=== PATIENT | male | born 1945 | race Caucasian/White ===

== ENCOUNTER 2017-05-26 21:38 | Inpatient (IN) | payer MEDICARE, BC ==
[2017-05-26 22:16] LABS: BASOPHILS 0 % (0-2); EOSINOPHILS 0.3 % (0-7); HEMATOCRIT 45.5 % (42.0-54.0); HEMOGLOBIN 15.3 g/dL (13.5-17.5); IMMATURE GRANULOCYTES 0.3 % (0-5); LYMPHOCYTES 1.3 % (15-50); MCH 31.5 pg (26.0-34.0); MCHC 33.6 g/dL (31.0-37.0); MCV 93.6 fL (80.0-100.0); MEAN PLATELET VOLUME 11.2 fL (7.4-10.4); MONOCYTES 2.9 % (2-11); NEUTROPHILS 95.2 % (40-80); PLATELET COUNT 133 10x3/uL (130-400); RBC 4.86 10x6/uL (4.20-6.10); RDW 13.5 % (11.5-14.5); WBC 12.6 10x3/uL (4.8-10.8)
[2017-05-26 22:34] LABS: ALBUMIN 3.6 g/dL (3.4-5.0); ANION GAP 16.1 mmol/L (8-16); BILIRUBIN - TOTAL 1.03 mg/dL (0.2-1.3); CALCIUM 9.5 mg/dL (8.5-10.1); CARBON DIOXIDE 24.6 mmol/L (21.0-32.0); CREATININE - SERUM 1.7 mg/dL (0.6-1.3); POTASSIUM - SERUM 3.7 mmol/L (3.5-5.1); PROTEIN - SERUM 6.9 g/dL (6.4-8.2)
[2017-05-26 22:35] LABS: MAGNESIUM - SERUM 1.6 mg/dL (1.8-2.4)
[2017-05-26 23:35] LABS: APPEARANCE CLEAR (CLEAR); BILIRUBIN NEGATIVE (NEGATIVE); COLOR DK YELLOW (YELLOW); GLUCOSE NEGATIVE (NEGATIVE); KETONE NEGATIVE (NEGATIVE); NITRITE NEGATIVE (NEGATIVE); PROTEIN 2+ mg/dL (NEGATIVE); SPECIFIC GRAVITY 1.015 (1.005-1.020); UROBILINOGEN NORMAL (NORMAL)
[2017-05-26 23:37] LABS: BACTERIA FEW /hpf (NONE SEEN); EPITHELIAL CELLS 0-5 /hpf (0-5); RED CELLS - URINE NONE SEEN /hpf (0-5); WHITE CELLS - URINE 0-5 /hpf (0-5)
--- NOTE | 2017-05-27 00:16 | NUR ---
PATTERNMAKER HELPER AT BEDSIDE, CALL LIGHT IN REACH. WILL CONTINUE WITH PLAN OF CARE.
--- NOTE | 2017-05-27 02:48 | NUR ---
PATIENT ARRIVED TO ROOM VIA WHEELCHAIR FROM THE ER. ALERT AND ORIENTED TO ROOM AND CALL LIGHT. CALL LIGHT IN REACH. DENIES PAIN OR NEEDS AT THIS TIME. WILL CONTINUE TO MONTIOR.
[2017-05-27] MEDS ORDERED: ZYLOPRIM100 MG PO (03:26)
[2017-05-27] MEDS ORDERED: PACERONE400 MG PO (03:26)
[2017-05-27] MEDS ORDERED: NORVASC10 MG PO (03:26)
[2017-05-27] MEDS ORDERED: ELIQUIS5 MG PO (03:27)
[2017-05-27] MEDS ORDERED: FOLIC ACID0.8 MG PO (03:27)
[2017-05-27] MEDS ORDERED: COZAAR50 MG PO (03:27)
[2017-05-27] MEDS ORDERED: PRILOSEC10 M1 PO (03:28)
[2017-05-27] MEDS ORDERED: TOPROL XL50 MG PO (03:28)
[2017-05-27] MEDS ORDERED: PREDNISONE1 MG PO (03:29)
[2017-05-27] MEDS ORDERED: CRESTOR40 MG PO (03:29)
[2017-05-27] MEDS ORDERED: SYMBICORT 16010.2 GM INH (03:30)
[2017-05-27] MEDS ORDERED: DYAZIDE 37.5/251 CAP PO (03:31)
[2017-05-27 05:20] VITALS: BP 105/49
--- NOTE | 2017-05-27 07:29 | NUR ---
KANE BROWER- RECEIVED REPORT FROM MARKETING/SALES PERSON NURSE CASSIE. PT IS CURRENTLY LAYING IN BED ON BACK WITH EYES OPEN RESTING. ON 02 AT 2L VIA NC. ON MONITOR SHOWING SB, HR 55. IV SEEN TO LEFT ARM WITH IV ANTIBIOTIC CURRENTLY RUNNING. PT DENIES ANY NEED AT THIS CURRENT TIME. WILL CONTINUE TO MONITOR AND CONTINUE WITH PLAN OF CARE.
[2017-05-27 09:45] VITALS: BP 114/55
--- NOTE | 2017-05-27 10:11 | NUR ---
DR. FELI ABRAHAM (PER DR. DAILY TO ABALONE DIVER NURSE CASSIE, HE WANTS DR. EDMOND TO CALL HIM). WILL AWAIT CALLBACK.
--- NOTE | 2017-05-27 10:15 | NUR ---
RECEIVED CALLBACK FROM DR. EDMOND. INFORMED DR. EDMOND THAT DR. DAILY CALLED THIS MORNING AND LEFT HIS NUMBER FOR SERVICE CORRESPONDENT NURSE TO HAVE DR. EDMOND CALL HIM. GAVE DR. FELI DAILY NUMBER. NO NEW ORDER RECEIVED. WILL CONTINUE TO MONITOR.
[2017-05-27 12:30] VITALS: BP 103/51
[2017-05-27 16:51] VITALS: BP 102/57
--- NOTE | 2017-05-27 18:18 | NUR ---
PT IS CURRENTLY LAYING IN BED ON BACK WITH EYES OPEN RESTING. HEART MONITOR PUT BACK ON PT (OFF FOR PT TO TAKE SHOWER). PT DENIES ANY NEED AT THIS TIME. WILL CONTINUE TO MONITOR.
--- NOTE | 2017-05-27 19:36 | NUR ---
PT IS RESTING IN BED WITH EYES CLOSED. NO DISTRESS NOTED. O2 IS ON @ 2LPM PER NC. NO SOB NOTED. TELEMETRY UNIT IS ON AND INTACT. SR'S ARE UP X 2 IN BED. CALL LIGHT AND BEDSIDE TABLE ARE WITHIN EASY REACH.
--- NOTE | 2017-05-27 22:03 | NUR ---
RESTING IN BED WITH EYES OPEN. IV ABX INFUSING.
[2017-05-28] VITALS: BP 129/61
--- NOTE | 2017-05-28 01:00 | NUR ---
PT RESTING IN BED WITH EYES CLOSED. USING URINAL PRN.
[2017-05-28 04:00] VITALS: BP 107/51
--- NOTE | 2017-05-28 04:34 | NUR ---
PT ASLEEP. RESP EVEN AND UNLABORED. LAYING ON RIGHT SIDE. NO S/S OF DISTRESS. BED LOW AND CALL LIGHT IN REACH. WILL CPOC
[2017-05-28 06:18] LABS: BASOPHILS 0.1 % (0-2); EOSINOPHILS 1.7 % (0-7); HEMATOCRIT 39.7 % (42.0-54.0); HEMOGLOBIN 13.3 g/dL (13.5-17.5); IMMATURE GRANULOCYTES 0.1 % (0-5); LYMPHOCYTES 11.8 % (15-50); MCH 31.2 pg (26.0-34.0); MCHC 33.5 g/dL (31.0-37.0); MCV 93.2 fL (80.0-100.0); MEAN PLATELET VOLUME 11.6 fL (7.4-10.4); MONOCYTES 7.4 % (2-11); NEUTROPHILS 78.9 % (40-80); PLATELET COUNT 138 10x3/uL (130-400); RBC 4.26 10x6/uL (4.20-6.10); RDW 13.9 % (11.5-14.5); WBC 7.5 10x3/uL (4.8-10.8)
[2017-05-28 06:52] LABS: ALBUMIN 2.7 g/dL (3.4-5.0); ANION GAP 14.3 mmol/L (8-16); BILIRUBIN - TOTAL 0.9 mg/dL (0.2-1.3); CALCIUM 8.7 mg/dL (8.5-10.1); CARBON DIOXIDE 22.6 mmol/L (21.0-32.0); CREATININE - SERUM 1.5 mg/dL (0.6-1.3); MAGNESIUM - SERUM 1.7 mg/dL (1.8-2.4); PHOSPHOROUS 2.6 mg/dL (2.5-4.9); POTASSIUM - SERUM 3.9 mmol/L (3.5-5.1); PROTEIN - SERUM 5.7 g/dL (6.4-8.2)
[2017-05-28 08:18] VITALS: BP 126/69
--- NOTE | 2017-05-28 08:18 | NUR ---
AM ROUNDING- RECEIVED REPORT FROM HOT STAMP OPERATOR NURSE JASS. PT IS CURRENTLY SITTING UP IN CHAIR EATING BREAKFAST. ON 02 AT 2L VIA NC. ON MONITOR SHOWING SR, HR 94. IV SEEN TO LEFT FOREARM THAT IS CURRENTLY SALINE LOCKED. NO NEED AT THIS CURRENT TIME. WILL CONTINUE TO MONITOR AND CONTINUE WITH PLAN OF CARE.
--- NOTE | 2017-05-28 09:49 | NUR ---
MARTÍNEZ, CARD PLACER CAME TO INFORM ME THAT PT WILL HAVE TO SIGN RELEASE OF INFORMATION PAPERS (REGARDING DR. MAYES NURSING MESSAGE [facility] PT STATES HIS CARMELITA IS BRINGING HIM HIS "DEVICE SO HE WON'T SHAKE TOO MUCH TO BE ABLE TO READ IT". I INFORMED MEHRAN, CARD PLACER OF THIS.
[2017-05-28 12:30] VITALS: BP 136/72
[2017-05-28 15:51] VITALS: BP 117/70
--- NOTE | 2017-05-28 16:09 | NUR ---
PT IS ON 02 AT 2L VIA NC. PRIOR ON SHIFT PT STATES JACKELYN WITH RESP STATES SHE IS GOING TO TITRATE PT DOWN. PT DOES NOT WEAR 02 AT HOME. THIS NURSE TITRATED PTS 02 DOWN TO 1L VIA NC (RESP HAS NOT DONE IT YET). PTS 02 SAT IS 93% CURRENTLY. PT STATES THAT IS WHAT HIS 02 SAT USUALLY RUNS AT HOME. JACKELYN WITH RESP AWARE OF THIS NURSE TITRATING 02 DOWN. WILL CONTINUE TO MONITOR.
--- NOTE | 2017-05-28 18:01 | NUR ---
PT IS CURRENTLY SITTING UP IN BED WITH EYES OPEN RESTING. PRIOR ON SHIFT THIS NURSE CHECKED PTS 02 SAT WHICH WAS IN THE HIGH 90'S. THIS NURSE TOOK PT OFF 02 (PT WAS ON O2 AT 1L VIA NC). PT DENIES ANY NEED AT THIS TIME. WILL CONTINUE TO MONITOR.
--- NOTE | 2017-05-28 19:38 | NUR ---
PT IN BED WATCHING TELEVISION. DENIES NEEDS AT THIS TIME.
[2017-05-28 20:00] VITALS: BP 135/69
--- NOTE | 2017-05-28 21:20 | NUR ---
IV LEAKING. REMOVED WITH CATH TIP INTACT. WILL ATTEMPT TO RESITE.
[2017-05-29] VITALS: BP 129/47
[2017-05-29 04:00] VITALS: BP 107/50
[2017-05-29] MEDS ORDERED: ZITHROMAX250 MG PO (07:01)
[2017-05-29] MEDS ORDERED: FLORAJEN3 CAPS460 MG PO (07:02)
--- NOTE | 2017-05-29 07:15 | NUR ---
RECEIVED REPORT. ASSUMED CARE OF PATIENT. MD HERE FOR AM ROUNDS AND DISCHARGE HAS BEEN ORDERED. CALL LIGHT WITHIN REACH. NO DISTRESS.
[2017-05-29] MEDS ORDERED: MUCINEX D1 TAB.SR . PO (07:46)
[2017-05-29 08:22] VITALS: BP 122/72
--- NOTE | 2017-05-29 10:06 | NUR ---
22 GAUGE IV REMOVED FROM LEFT WRIST. CATHETER TIP INTACT. PATIENT IS DISCHARGING TO HOME. NO BLEEDING FROM SITE. 2X2 GAUZE APPLIED AND SECURED WITH TAPE. TOLERATED REMOVAL OF IV WELL. NO DISTRESS.
--- NOTE | 2017-05-29 10:07 | NUR ---
O2 SAT SORAYA OXYGEN 5 MINUTES IS 98%. WILL RECHECK AT 15 MINUTES S/P O2 REMOVAL.
--- NOTE | 2017-05-29 10:20 | NUR ---
O2 SAT REMAINS AT 98 PERCENT ON ROOM AIR. NO DISTRESS.
[2017-05-29] MEDS ORDERED: BENZONATATE200 MG PO (10:22)
--- NOTE | 2017-05-29 10:45 | NUR ---
DISCHARGE INSTRUCTIONS PROVIDED TO PATIENT AND FAMILY. PATIENT VERBALIZED UNDERSTANDING OF ALL INSTRUCTIONS PROVIDED. TELEMETRY REMOVED. PATIENT DENIES ASSIST TO GET DRESSED.
--- NOTE | 2017-05-29 11:07 | NUR ---
PATIENT LEFT UNIT VIA WHEELCHAIR. PATIENT DISCHARGED TO HOME. PATIENT LEFT UNIT WITH ALL PERSONAL BELONGINGS. NO DISTRESS UPON LEAVING UNIT.
== END 2017-05-29 11:07 | disposition home or self-care (01) | DRG 194 ==
LOC: D.ER 21:38 → D.M2 23:56
PROVIDERS: Emergency Medicine; ADMIT Family Medicine
DX: J18.9 Pneumonia, unspecified organism (principal); N17.9 Acute kidney failure, unspecified; R76.11 Nonspecific reaction to tuberculin skin test without active tuberculosis; E78.5 Hyperlipidemia, unspecified; K21.9 Gastro-esophageal reflux disease without esophagitis; K75.9 Inflammatory liver disease, unspecified; I48.2 Chronic atrial fibrillation; I10 Essential (primary) hypertension; I25.10 Atherosclerotic heart disease of native coronary artery without angina pectoris; M35.3 Polymyalgia rheumatica; E83.42 Hypomagnesemia; M10.9 Gout, unspecified; Z87.891 Personal history of nicotine dependence